=== PATIENT | female | born 1995 | race Caucasian/White ===

== ENCOUNTER 2017-05-13 23:18 | Emergency (ER) | payer SELFPAY | END 2017-05-13 23:40 | disposition left against medical advice (07) | LOC: M ED 23:18 | DX: M79.609 Pain in unspecified limb (principal); Z53.21 Procedure and treatment not carried out due to patient leaving prior to being seen by health care provider ==

== ENCOUNTER 2017-09-20 14:07 | Emergency (ER) | payer OTHER, SELFPAY ==
[2017-09-20] MEDS: NS 1,000 ML IV (15:26)
[2017-09-20] MEDS ORDERED: ONDANSETRON 4MG/2ML VIAL (J2405) As Ordered (15:44)
[2017-09-20] MEDS: ONDANSETRON 4MG/2ML VIAL (J2405) IV (15:46)
[2017-09-20] MEDS: diphenhydrAMINE INJ 50MG/ML VIAL (J1200) IV (16:38)
[2017-09-20] MEDS: METOCLOPRAMIDE INJ 10MG/2ML VIAL (J2765) IV (16:40)
[2017-09-20] MEDS: KETOROLAC 30 MG/ML VIAL (J1885) IV (16:42)
== END 2017-09-20 17:30 | disposition home or self-care (01) ==
LOC: M ED 14:07
DX: R51 Headache (principal); N80.9 Endometriosis, unspecified; G90.50 Complex regional pain syndrome I, unspecified; Z88.8 Allergy status to other drugs, medicaments and biological substances
CPT/HCPCS: J1200

== ENCOUNTER 2017-10-11 13:11 | Emergency (ER) | payer OTHER ==
[2017-10-11] MEDS: NORCO, ANEXSIA 5/325MG TABLET (HYDROcodone/ACETAMINOPHEN) PO (15:14)
== END 2017-10-11 15:23 | disposition home or self-care (01) ==
LOC: M ED 13:11
DX: S93.402A Sprain of unspecified ligament of left ankle, initial encounter (principal); X50.1XXA Overexertion from prolonged static or awkward postures, initial encounter; Y92.89 Other specified places as the place of occurrence of the external cause; G90.50 Complex regional pain syndrome I, unspecified; F31.9 Bipolar disorder, unspecified; N80.9 Endometriosis, unspecified; Z88.8 Allergy status to other drugs, medicaments and biological substances
CPT/HCPCS: 73610

== ENCOUNTER → 2017-11-27 | Outpatient (CLI) | payer OTHER ==
[~2017-11-27] MED LIST: ISOVUE-370 76% 100ML VIAL (Q9967) As Ordered
== END ==
LOC: M RADPRO 11:39
DX: N97.9 Female infertility, unspecified (principal)
CPT/HCPCS: 58340

== ENCOUNTER → 2017-12-08 | Outpatient (REF) | payer OTHER ==
[2017-12-08 18:04] LABS: CHLAMYDIA DNA AMPLIFICATION NEGATIVE (NEGATIVE); GC DNA AMPLIFICATION NEGATIVE (NEGATIVE)
== END ==
LOC: M SFHCLERA 10:39
DX: R50.9 Fever, unspecified (principal); R11.10 Vomiting, unspecified
CPT/HCPCS: 87086

== ENCOUNTER → 2017-12-12 | Outpatient (REF) | payer OTHER | LOC: M SFHCLERA 13:49 | DX: R30.0 Dysuria (principal) ==

== ENCOUNTER 2017-12-31 17:53 | Emergency (ER) | payer OTHER | END 2017-12-31 18:46 | disposition home or self-care (01) | LOC: M ED 17:53 | DX: S92.351A Displaced fracture of fifth metatarsal bone, right foot, initial encounter for closed fracture (principal); X50.9XXA Other and unspecified overexertion or strenuous movements or postures, initial encounter; Y92.018 Other place in single-family (private) house as the place of occurrence of the external cause; Z88.8 Allergy status to other drugs, medicaments and biological substances | CPT/HCPCS: 73610 ==

== ENCOUNTER → 2018-01-16 | Outpatient (REF) | payer OTHER ==
[2018-01-16 18:09] LABS: HEMATOCRIT 38.6 % (36.0-47.0); MEAN CORPUSCULAR HEMOGLOBIN 29.1 pg (27.0-33.0); MEAN CORPUSCULAR HGB CONC 33.7 g/dl (32.0-36.5); MEAN CORPUSCULAR VOLUME 86.4 fl (80.0-96.0); PLATELET COUNT, AUTOMATED 345 10^3/uL (150-450); RED BLOOD COUNT 4.47 10^6/uL (4.00-5.40); RED CELL DISTRIBUTION WIDTH 13.8 % (11.5-14.5); WHITE BLOOD COUNT 7.4 10^3/uL (4.0-10.0)
[2018-01-16 18:41] LABS: HCG, SERUM QUANTITATIVE 11467 MIU/ML
[2018-01-17 11:30] LABS: RUBELLA IgG QUALITATIVE IMMUNE (IMMUNE)
[2018-01-17 11:58] LABS: HEPATITIS C VIRUS ABY INDEX 0.1 INDEX (<0.8)
[2018-01-17 11:59] LABS: HIV 1&2 SCREEN CENTAUR NEGATIVE (NEGATIVE)
[2018-01-17 14:01] LABS: HBsAg Prenatal NEGATIVE (NEGATIVE)
== END ==
LOC: M LAB REF 17:00
DX: O36.80X0 Pregnancy with inconclusive fetal viability, not applicable or unspecified (principal)
CPT/HCPCS: 86762

== ENCOUNTER 2018-01-25 21:41 | Emergency (ER) | payer OTHER ==
[2018-01-25] MEDS: NORCO, ANEXSIA 5/325MG TABLET (HYDROcodone/ACETAMINOPHEN) PO (22:39)
[2018-01-25 22:46] LABS: BASO % 0.2 % (0.0-1.0); EOS # 0.1 10^3/uL (0.0-0.50); EOS % 1.3 % (0.0-3.0); HEMATOCRIT 36.1 % (36.0-47.0); IMMATURE GRANULOCYTE % 0.4 % (0-3.0); LYMPH # 2.4 10^3/uL (1.5-6.5); LYMPH % 23.4 % (24.0-44.0); MEAN CORPUSCULAR HEMOGLOBIN 28.6 pg (27.0-33.0); MEAN CORPUSCULAR HGB CONC 33.2 g/dl (32.0-36.5); MONO # 0.9 10^3/uL (0.0-0.8); MONO % 8.4 % (0.0-5.0); NEUTROPHILS # 6.8 10^3/uL (1.8-7.7); NEUTROPHILS % 66.3 % (36.0-66.0); PLATELET COUNT, AUTOMATED 251 10^3/uL (150-450); RED CELL DISTRIBUTION WIDTH 13.2 % (11.5-14.5); WHITE BLOOD COUNT 10.3 10^3/uL (4.0-10.0)
[2018-01-25 22:56] LABS: INR 1.11; PROTHROMBIN TIME 14.5 SECONDS (12.1-14.4)
[2018-01-25 22:57] LABS: PARTIAL THROMBOPLASTIN TIME 32.3 SECONDS (25.4-37.6)
[2018-01-25 23:26] LABS: ALBUMIN 3.2 GM/DL (3.2-5.2); ALBUMIN/GLOBULIN RATIO 0.71 (1.00-1.93); ALKALINE PHOSPHATASE 62 U/L (45-117); ALT/SGPT 17 U/L (12-78); ANION GAP 11 MEQ/L (8-16); AST/SGOT 11 U/L (7-37); BILIRUBIN,DIRECT 0.1 MG/DL (0.0-0.2); BILIRUBIN,TOTAL 0.5 MG/DL (0.2-1.0); BLOOD UREA NITROGEN 9 MG/DL (7-18); C REACTIVE PROTEIN QUANTITATIV 8.31 MG/DL (0.00-0.30); CALCIUM LEVEL 8.7 MG/DL (8.5-10.1); CARBON DIOXIDE LEVEL 22 MEQ/L (21-32); CHLORIDE LEVEL 105 MEQ/L (98-107); CREATININE FOR GFR 0.62 MG/DL (0.55-1.30); GLOMERULAR FILTRATION RATE > 60.0 (>60); GLUCOSE, FASTING 94 MG/DL (70-100); HCG, SERUM QUANTITATIVE 31470 MIU/ML; POTASSIUM SERUM 3.8 MEQ/L (3.5-5.1); SODIUM LEVEL 138 MEQ/L (136-145); TOTAL PROTEIN 7.7 GM/DL (6.4-8.2)
[2018-01-25 23:29] LABS: ERYTHROCYTE SEDIMENTATION RATE 59 mm/hr (0-20)
[2018-01-25] MEDS: methylPREDNISolone INJ 125 MG/2 ML VIAL (J2930) IM (23:45)
== END 2018-01-26 00:05 | disposition home or self-care (01) ==
LOC: M ED 01-26 00:05
DX: M94.0 Chondrocostal junction syndrome [Tietze] (principal); R09.1 Pleurisy; I26.99 Other pulmonary embolism without acute cor pulmonale
CPT/HCPCS: J2930

== ENCOUNTER → 2018-03-15 | Outpatient (REF) | payer OTHER ==
[~2018-03-15] MED LIST changes: -ISOVUE-370 76% 100ML VIAL (Q9967) As Ordered; +NORCOTAB PO; +PRENTAB7 PO
== END ==
LOC: M SFHCLERA 14:55
PROVIDERS: ATTEND Physician Assistant
DX: R50.9 Fever, unspecified (principal)

== ENCOUNTER 2018-05-23 14:33 | Outpatient (CLI) | payer OTHER ==
[~2018-05-23] VITALS: Ht 170.2 cm; Wt 107.2 kg
[~2018-05-23 14:33] MED LIST changes: +HYDR-3715 PO; -NORCOTAB PO
[2018-05-23 14:53] VITALS: BP 102/52
[2018-05-23] MEDS ORDERED: MAPA500T2 PO (15:17)
[2018-05-23 15:36] VITALS: BP 101/56
[2018-05-23 16:31] VITALS: BP 112/57
[2018-05-23 16:32] LABS: AMORPHOUS SEDIMENT SMALL (NEGATIVE); APPEARANCE, URINE CLOUDY (CLEAR); BACTERIA, URINE AUTO 2+ (NEGATIVE); BILIRUBIN, URINE AUTO NEGATIVE (NEGATIVE); BLOOD, URINE BLOOD NEGATIVE (NEGATIVE); COLOR, URINE YELLOW (YELLOW); GLUCOSE, URINE (UA) AUTO NEGATIVE (NEGATIVE); KETONE, URINE AUTO 1+ mg/dL (NEGATIVE); LEUKOCYTE ESTERASE, URINE AUTO NEGATIVE (NEGATIVE); MUCUS, URINE MODERATE (NEGATIVE); NITRITE, URINE AUTO NEGATIVE (NEGATIVE); PROTEIN, URINE AUTO 1+ mg/dL (NEGATIVE); RBC, URINE AUTO 0 /HPF (0-3); SPECIFIC GRAVITY URINE AUTO 1.023 (1.002-1.035); SQUAMOUS EPITHELIAL CELL UR AU 7 /HPF (0-6); UROBILINOGEN, URINE AUTO 0.2 mg/dL (0.0-2.0); WBC, URINE AUTO 5 /HPF (0-3)
[2018-05-23 17:36] VITALS: BP 131/66
[2018-05-23 17:40] LABS: INFLUENZA A AMPLIFICATION POSITIVE (NEGATIVE); INFLUENZA B AMPLIFICATION NEGATIVE (NEGATIVE)
[2018-05-23] MEDS ORDERED: OSEL75CA PO (18:12)
[2018-05-23 18:21] VITALS: BP 107/62
[2018-05-23] MEDS ORDERED: ACETAMINOPHEN 500 MG TAB PO ONE (19:00)
[2018-05-23] MEDS ORDERED: OSELTAMIVIR PHOSPHATE 75 MG CAP (TAMIFLU) PO ONE (19:00)
[2018-05-23 19:42] VITALS: BP 99/55
== END 2018-05-23 20:03 | disposition home or self-care (01) ==
LOC: M LDO 14:33
PROVIDERS: ATTEND Obstetrics & Gynecology
DX: O99.89 Other specified diseases and conditions complicating pregnancy, childbirth and the puerperium (principal); R51 Headache; R10.30 Lower abdominal pain, unspecified; O98.519 Other viral diseases complicating pregnancy, unspecified trimester; Z3A.24 24 weeks gestation of pregnancy
CPT/HCPCS: 81001; 87502; G0378; G0463

== ENCOUNTER → 2018-06-25 | Outpatient (CLI) | payer OTHER ==
[~2018-06-25] MED LIST changes: +MAPA500T2 PO; +OSEL75CA PO
[2018-06-25 12:45] LABS: HEMATOCRIT 33.4 % (36.0-47.0); HEMOGLOBIN 10.8 g/dl (12.0-15.5); MEAN CORPUSCULAR HEMOGLOBIN 27.6 pg (27.0-33.0); MEAN CORPUSCULAR HGB CONC 32.3 g/dl (32.0-36.5); MEAN CORPUSCULAR VOLUME 85.2 fl (80.0-96.0); PLATELET COUNT, AUTOMATED 314 10^3/uL (150-450); RED BLOOD COUNT 3.92 10^6/uL (4.00-5.40)
== END ==
LOC: M LAB 11:07
PROVIDERS: ATTEND Obstetrics & Gynecology
DX: Z34.02 Encounter for supervision of normal first pregnancy, second trimester (principal); Z3A.00 Weeks of gestation of pregnancy not specified

== ENCOUNTER 2018-07-18 12:59 | Emergency (ER) | payer OTHER ==
[~2018-07-18] VITALS: Ht 170.2 cm; Wt 110.5 kg
[2018-07-18 13:36] LABS: BASO % 0.3 % (0.0-1.0); EOS % 0.4 % (0.0-3.0); HEMATOCRIT 32.7 % (36.0-47.0); LYMPH % 20.3 % (24.0-44.0); MEAN CORPUSCULAR HEMOGLOBIN 28.3 pg (27.0-33.0); MEAN CORPUSCULAR HGB CONC 33.6 g/dl (32.0-36.5); MEAN CORPUSCULAR VOLUME 84.1 fl (80.0-96.0); MONO # 0.6 10^3/uL (0.0-0.8); MONO % 5.7 % (0.0-5.0); NEUTROPHILS % 71.5 % (36.0-66.0); PLATELET COUNT, AUTOMATED 302 10^3/uL (150-450); RED BLOOD COUNT 3.89 10^6/uL (4.00-5.40); WHITE BLOOD COUNT 9.8 10^3/uL (4.0-10.0)
[2018-07-18] MEDS ORDERED: NS 1,000 ML IV ONE (14:00)
[2018-07-18 14:06] LABS: BLOOD UREA NITROGEN 6 MG/DL (7-18); CALCIUM LEVEL 8.8 MG/DL (8.5-10.1); CARBON DIOXIDE LEVEL 21 MEQ/L (21-32); CHLORIDE LEVEL 108 MEQ/L (98-107); CREATININE FOR GFR 0.51 MG/DL (0.55-1.30); GLOMERULAR FILTRATION RATE > 60.0 (>60); GLUCOSE, FASTING 118 MG/DL (70-100); POTASSIUM SERUM 3.7 MEQ/L (3.5-5.1); SODIUM LEVEL 138 MEQ/L (136-145)
[2018-07-18] MEDS ORDERED: cefTRIAXone SOD 1 GM in D5W MINI-BAG PLUS 50 ML IV ONE (15:30)
[2018-07-18] MEDS ORDERED: CEFD300CAP PO (16:42)
[2018-07-18 16:51] VITALS: BP 101/58
--- NOTE | 2018-07-18 19:58 | ECGEPIP ---
[facility] - ED Test Date: 2018-07-18 Pat Name: NANCY KONG Department: Room: - Gender: Female [employer] Secondary Professional: [place] : 1995 Requested By: PROSPER Daugherty Order Number: [id number] Reading MD: Guillermo Renteria Measurements Intervals [place] Rate: 78 P: 44 CT: 149 QRS: 51 QRSD: 92 T: 14 QT: 381 QTc: 437 Interpretive Statements SINUS RHYTHM WITH SINUS ARRHYTHMIA Electronically Signed on 07-18-2018 19:57:45 EDT by Guillermo Renteria
== END 2018-07-18 17:01 | disposition home or self-care (01) ==
LOC: EDBD 12:59 → M ED 12:59
DX: O23.43 Unspecified infection of urinary tract in pregnancy, third trimester (principal); O99.283 Endocrine, nutritional and metabolic diseases complicating pregnancy, third trimester; Z3A.00 Weeks of gestation of pregnancy not specified; Z88.8 Allergy status to other drugs, medicaments and biological substances
CPT/HCPCS: 36415; 80048; 81001; 84443; 85025; 87086; 93005; 93041; 94760; 96361; 96374; 99285; J0696

== ENCOUNTER 2019-03-11 15:13 | Emergency (ER) | payer OTHER ==
[~2019-03-11 15:13] MED LIST changes: +CEFD300CAP PO
[2019-03-11] MEDS ORDERED: IBUP-1022 PO (15:20)
[2019-03-11] MEDS ORDERED: ACETAMINOPHEN TAB 650MG DOSE (2X325MG) PO ONE (17:15)
[2019-03-11] MEDS ORDERED: LIDOCAINE 5% (LIDODERM) PATCH TD ONE (17:15)
--- NOTE | 2019-03-11 18:07 | REP ---
Lumbar spine five views: There are no comparisons. There is mild scoliosis convex left at the lower lumbar spine. Vertebral body heights, interspacing alignment are normal. There is no spondylolysis or spondylolisthesis. The pedicles and facets are unremarkable. The sacroiliac articulations are unremarkable. Impression: Mild scoliosis, otherwise negative lumbar spine. Electronically Signed by Oswaldo Vides MD 03/11/2019 05:58 P
[2019-03-11] MEDS ORDERED: LIDO5DIS41 TOP (18:54)
[2019-03-11 18:58] VITALS: BP 121/65
[2019-03-11] MEDS ORDERED: **NOTE PATIENT COMMENT** MISC XX SCH (21:00)
== END 2019-03-11 18:59 | disposition home or self-care (01) ==
LOC: M ED 15:13
DX: M54.5 Low back pain (principal); Z91.048 Other nonmedicinal substance allergy status; Z88.8 Allergy status to other drugs, medicaments and biological substances; M41.9 Scoliosis, unspecified

== ENCOUNTER 2019-07-07 22:37 | Emergency (ER) | payer OTHER ==
[~2019-07-07] VITALS: Ht 170.2 cm; Wt 105.0 kg
[~2019-07-07 22:37] MED LIST changes: +IBUP-1022 PO; +LIDO5DIS41 TOP
--- NOTE | 2019-07-07 23:55 | REPVR ---
PROCEDURE INFORMATION: Exam: XR Left Foot Complete Exam date and time: 07/07/2019 11:06 PM Age: 23 years old Clinical indication: Other: Twisted; Additional info: Twisted ankle, now w/lateral ankle/foot pain TECHNIQUE: Imaging protocol: XR Left foot. Views: 3 or more views. COMPARISON: [place] Foot, complete 12/31/2017 6:14 PM FINDINGS: Bones/joints: Normal. Soft tissues: Normal. IMPRESSION: Negative left foot. Electronically signed by: Nilton Farrell On 07/07/2019 23:55:15 PM
--- NOTE | 2019-07-07 23:56 | REPVR ---
PROCEDURE INFORMATION: Exam: XR Left Ankle Exam date and time: 07/07/2019 11:06 PM Age: 23 years old Clinical indication: Other: Twisted; Additional info: Twisted ankle, now w/lateral ankle pain TECHNIQUE: Imaging protocol: XR Left ankle. Views: 3 or more views. COMPARISON: [place] Ankle, complete 12/31/2017 6:14 PM FINDINGS: Bones/joints: Normal. No fracture. Soft tissues: Normal. IMPRESSION: Negative left ankle. Electronically signed by: Nilton Farrell On 07/07/2019 23:55:46 PM
[2019-07-08 00:26] VITALS: BP 116/75
== END 2019-07-08 00:27 | disposition home or self-care (01) ==
LOC: M ED 22:37
DX: S93.492A Sprain of other ligament of left ankle, initial encounter (principal); X50.1XXA Overexertion from prolonged static or awkward postures, initial encounter; Y92.89 Other specified places as the place of occurrence of the external cause; F31.9 Bipolar disorder, unspecified; G90.50 Complex regional pain syndrome I, unspecified; Z88.8 Allergy status to other drugs, medicaments and biological substances; Z91.048 Other nonmedicinal substance allergy status; Z91.041 Radiographic dye allergy status

== ENCOUNTER → 2019-07-26 | Outpatient (CLI) | payer OTHER ==
--- NOTE | 2019-07-27 10:51 | REP ---
MRI RIGHT FOOT: TECHNIQUE: Multiple sequences obtained in the axial, coronal and sagittal planes. There is mild bone marrow edema in the plantar aspect of the head of the 1st metatarsal. The adjacent sesamoid bones demonstrate no abnormal signal. There is some very mild marrow edema in the medial aspect of the navicular bone. Otherwise bone marrow signal elsewhere is homogeneous and unremarkable. Normal amount of scattered joint fluid is present. No ganglion cyst or other soft tissue nodule is seen. There is no evidence of tenosynovitis. Flexor and extensor tendons appear unremarkable. Plantar fascia demonstrates no abnormal signal. The tendons and ligaments at the ankle appear intact. IMPRESSION: Mild marrow edema in the plantar aspect of the 1st metatarsal head is nonspecific. Adjacent sesamoid bones demonstrate no abnormal signal. The edema may represent mild stress-related changes in the bone versus a small bone bruise. There is also mild nonspecific marrow edema in the medial aspect of the navicular bone. I seen no other significant findings. Electronically Signed by Oswaldo Chan MD 07/29/2019 10:17 P
== END ==
LOC: M RAD 14:39
PROVIDERS: ATTEND Podiatrist Foot & Ankle Surgery
DX: M89.9 Disorder of bone, unspecified (principal)